=== PATIENT | male | born 1945 | race Caucasian/White ===

== ENCOUNTER 2016-07-08 10:59 | Day surgery (SDC) | payer MEDICARE, OTHER ==
[~2016-07-08] VITALS: Ht 182.9 cm; Wt 127.0 kg
[~2016-07-08 10:59] MED LIST: 0.9% Sodium Chloride 1,000 ML IV PRN; ASPI-973 PO; Sodium Chloride LOK Flush 10 mL Syringe IV PRN; fentaNYL-PF 50 mCg/mL 2 mL Inj IVPUSH PRN
[2016-07-08 11:35] VITALS: BP 136/89; PULSE 77; RESP 16; O2SAT 98
[2016-07-08 12:55] VITALS: BP 143/87; PULSE 64; RESP 16; O2SAT 97
[2016-07-08 13:05] VITALS: BP 131/86; PULSE 74; RESP 16; O2SAT 97
[2016-07-08 13:14] VITALS: BP 124/84; PULSE 70; RESP 16; O2SAT 99
--- NOTE | 2016-07-08 13:37 | ENDO ---
[address] [address] ENDOSCOPY PROCEDURE PATIENT: ATA ROGERS : 1945 MR#: [id number] ADMIT: 07/08/2016 JOB ID: [id number] DATE OF SERVICE: 07/08/2016 PRIMARY PROVIDER: Wily Lieberman MD. PROCEDURE: Colonoscopy with cold forceps polypectomy. INDICATIONS: A 70-year-old male who reports for colon cancer screening. Historically, he has had a very difficult time with bowel prepping. EQUIPMENT: Roamer-H180AL. SEDATION: 1. Versed 5 mg. 2. Fentanyl 100 mcg. COMPLICATIONS: None identified. BOWEL PREPARATION: Suboptimal in many locations requiring copious amounts of irrigation and suction. PROCEDURE INFORMATION: After the risks and benefits were explained, written and verbal informed consent was obtained. The patient was brought into the endoscopy suite and placed into the left lateral decubitus position. Sedation was achieved using the above-stated medications with the addition of oxygen via nasal cannula. A digital rectal examination was accomplished. No significant pathology appreciated. The scope was introduced into the rectum and advanced under direct visualization to the level of the cecum, as identified by the ileocecal valve and a debris-filled cecum. Complete visualization was not possible. The scope was slowly withdrawn to carefully examine the mucosa for any defects or lesions. Retroflexed views were accomplished in the rectum. The colon was decompressed. The scope removed from the patient who tolerated the procedure well. This procedure was 56 minutes in length. It was quite difficult in terms of navigation due to colon length and redundancy, along with a suboptimal bowel prep. A 22 modifier was, therefore, requested. FINDINGS: Prep conditions as above. I did see two small diminutive polyps in the right colon, removed with cold forceps. We did not get a complete look at the cecal mucosa in that it was filled with stool and fibrous debris. There were several areas that could not be fully cleansed during today's examination. A couple of times we completely clogged the scope with fibrous debris. We used well over an entire Wall suction canister. Retroflexed views from within the rectum were unremarkable. ENDOSCOPIC DIAGNOSES: 1. Diminutive colon polyps. 2. Suboptimal bowel prep (in spite of the patient being compliant with extra prep recommendations made prior to today's procedure). RECOMMENDATIONS: 1. Await histopathology. 2. Even if these polyps are hyperplastic, repeat colonoscopy in no later than five years with double bowel prep.
--- NOTE | 2016-07-10 10:36 | PATH ---
SURGICAL PATHOLOGY Attending Physician:Ronald Elizondo CASE STATUS: Signed Out PATIENT NAME: ATA ROGERS PID: [id number] : 1945 DATE COLLECTED:07/08/2016 22:56 SPECIMEN: Colon, Biopsy CLINICAL HISTORY: 1). 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 ICD10 CODE D12.6 GROSS DESCRIPTION: The specimen is received in one formalin filled container labeled with the patient's name, sublabeled "colon polyps X2" and consists of 2 portions of tissue which aggregate to 0.3 x 0.3 x 0.3 CM. The specimen is entirely submitted in one cassette. 07/09/2016 [facility] MICRO DESCRIPTION: See diagnosis. ICD-9 CODES: CPT CODES: 1: 97191 Electronically Signed Out Fadi Denny MD [facility] [address], [place] [address] Technical component performed at [facility], [facility] [address], [address]
== END 2016-07-08 23:59 | disposition home or self-care (01) ==
LOC: END 10:59
PROVIDERS: ATTEND Internal Medicine Gastroenterology
DX: Z12.11 Encounter for screening for malignant neoplasm of colon (principal); D12.2 Benign neoplasm of ascending colon; Z79.82 Long term (current) use of aspirin
CPT/HCPCS: 45380; 88305; 99153; G0500; J2250; J3010; J7030